=== PATIENT | female | born 1950 | race Caucasian/White ===

== ENCOUNTER 2018-03-19 03:36 | Observation (INO) | payer OTHER, MEDICARE ==
[~2018-03-19] VITALS: Ht 152.4 cm; Wt 95.8 kg
[2018-03-19] VITALS (8 sets, daily range): BP systolic 103–152; BP diastolic 55–79; PULSE 82–106; TEMP 36.8–37.4; O2SAT 92–94; Ht 152.4 cm; Wt 95.8 kg
[2018-03-19] MEDS ORDERED: SODIUM CHLORIDE 0.9% 500ML 500 ML IV STA (03:49)
[2018-03-19 03:59] LABS: BASO % 0.3 %; BASO ABS # 0.04 K/uL (0-0.2); EOS % 1.9 %; EOS ABS # 0.24 K/uL (0-0.5); HEMATOCRIT 43.2 % (37-47); HEMOGLOBIN 14.8 g/dL (12.0-16.0); IG# 0.03 K/uL (0.00-0.02); LYMPH % 15.5 %; LYMPH ABS # 1.96 K/uL (1.2-3.4); MEAN CORPUSCULAR HEMOGLOBIN 30.1 pg (25-34); MEAN CORPUSCULAR HGB CONC 34.3 g/dl (32-36); MEAN PLATELET VOLUME 9.8 fL (7.4-10.4); MONO % 5.5 %; NEUT % 76.6 %; NEUT ABS # 9.69 K/uL (1.4-6.5); PLATELET COUNT 286 K/uL (130-400); RED CELL DISTRIBUTION WIDTH SD 45.1 fL (36.4-46.3); WHITE BLOOD COUNT 12.66 K/uL (4.8-10.8)
[2018-03-19] MEDS ORDERED: MoRPHine SULFATE 4 MG/ML 1 ML CARP\\VIAL IV ONE (04:00)
[2018-03-19] MEDS ORDERED: NITROGLYCERIN 2% OINTMENT 30GM TUBE EXT ONE (04:00)
[2018-03-19 04:16] LABS: ALBUMIN 3.2 gm/dl (3.4-5.0); CALCIUM 8.9 mg/dl (8.5-10.1); CREATININE 1.13 mg/dl (0.60-1.20); POTASSIUM 3.8 mmol/L (3.5-5.1)
[2018-03-19 04:22] LABS: CKMB 1.3 ng/ml (0.5-3.6); TOTAL PROTEIN 7.4 gm/dl (6.4-8.2)
[2018-03-19] MEDS ORDERED: CHOL2000 PO (04:37)
[2018-03-19] MEDS ORDERED: LVMIPEN SQ (04:38)
[2018-03-19] MEDS ORDERED: CYM/30 PO (04:39)
[2018-03-19] MEDS ORDERED: LEVO125T5 PO (04:39)
[2018-03-19] MEDS ORDERED: ATOR-22 PO (04:40)
[2018-03-19 04:53] LABS: INR 1.1 (0.9-1.1); PTT PATIENT 24.3 SECONDS (21.0-31.0)
[2018-03-19] MEDS ORDERED: OPTIRAY 320 IV PRN (05:00)
[2018-03-19] MEDS ORDERED: EXEN1INJ3 SC (05:01)
[2018-03-19 06:55] LABS: HEMOGLOBIN A1C 9.3 % (4.5-5.6)
--- NOTE | 2018-03-19 06:58 | DIAGNOSTIC IMAGING REPORT ---
CHEST ONE VIEW PORTABLE CLINICAL HISTORY: Chest pain dyspnea COMPARISON STUDY: No previous studies for comparison. FINDINGS: The bones soft tissues and hemidiaphragms are normal. The cardiomediastinal silhouette is normal. The lungs are clear. The pulmonary vasculature is normal. Postoperative changes low cervical neck region IMPRESSION: No acute process. The above report was generated using voice recognition software. It may contain grammatical, syntax or spelling errors. Electronically signed by: Waldo Draper M.D. 03/19/2018 6:57 AM Dictated Date/Time: 03/19/2018 6:56 AM
[2018-03-19] MEDS ORDERED: MAGNESIUM SULFATE 1GM / D5W 100 ML IV STA (07:01)
[2018-03-19] MEDS ORDERED: TRAMADOL HCL 50 MG TAB PO PRN (07:15)
[2018-03-19] MEDS ORDERED: ACETAMINOPHEN 325 MG TAB PO PRN (07:15)
[2018-03-19] MEDS ORDERED: DEXTROSE 50% 50 ML SYR IV PRN (07:15)
[2018-03-19] MEDS ORDERED: GLUCAGON FOR INJ 1 MG VIAL SQ PRN (07:15)
[2018-03-19] MEDS ORDERED: LORAZEPAM 2 MG/ML 1 ML VIAL IV PRN (07:15)
[2018-03-19] MEDS ORDERED: CARBOHYDRATES FOR HYPOGLYCEMIA PO PRN (07:15)
[2018-03-19] MEDS ORDERED: GLUCOSE 40% GEL 15 GM TUBE PO PRN (07:15)
[2018-03-19] MEDS ORDERED: MoRPHine SULFATE 2 MG/ML CARP IV PRN (07:15)
[2018-03-19] MEDS ORDERED: PROCHLORPERAZINE INJ 5 MG in SYRINGE 4 ML IV PRN (07:15)
[2018-03-19] MEDS ORDERED: NITROGLYCERIN 0.4 MG SL PER TAB CHARGE SL PRN (07:15)
[2018-03-19] MEDS ORDERED: GLUCOSE 10 TABS/TUBE PO PRN (07:15)
--- NOTE | 2018-03-19 07:31 | DIAGNOSTIC IMAGING REPORT ---
(CHEST FOR PE) ANGIO WITH CLINICAL HISTORY: 67 years-old Female presenting with ^chest pain. TECHNIQUE: Multidetector CT angiography of the chest was performed after administration of intravenous contrast. 3-D volumetric and/or maximum intensity projection (MIP) images were subsequently reconstructed for review. IV contrast: 94 mL of Optiray 320. A dose lowering technique was used consistent with the principles of ALARA (as low as reasonably achievable). COMPARISON: Chest x-ray performed earlier the same day. CT DOSE (mGy.cm): The estimated cumulative dose is 499.22 mGy.cm. FINDINGS: Business Investor topogram: Unremarkable. Pulmonary vasculature: The study is adequate for assessment of the pulmonary vascular tree. No filling defect within the pulmonary arteries to suggest embolus. Main pulmonary artery is top normal in size. No flattening of the interventricular septum. No intracardiac filling defect. No reflux of contrast into the hepatic veins. Remaining chest: On soft tissue windows, post surgical changes of thyroidectomy. No axillary, supraclavicular, hilar, or mediastinal lymphadenopathy. Normal aorta. Normal heart size. No pericardial or pleural effusion. Postsurgical changes of gastric banding. Small hiatal hernia may be present. Borderline hepatic steatosis. On lung windows, minimal dependent groundglass opacities in the right lower lobe likely atelectasis. Solid peripheral 4 mm nodule in the posterior basal right lower lobe (series 4 image 72). The most inferior portion of the lung bases is excluded from the [id number] limiting evaluation in this region. Central airways patent. On bone windows, degenerative changes of the spine. IMPRESSION: 1. No evidence of pulmonary embolus. 2. No acute intrathoracic pathology. 3. Solid 4 mm right lower lobe pulmonary nodule. Follow-up per Jesus Society 2017 recommendations below. The report will be called/faxed according to standard departmental protocol. Please refer to below summary of Fleischner Society 2017 recommendations for follow-up of incidental CT nodules (H Alley et al. Guidelines for management of incidental pulmonary nodules detected on CT images: From the Fleischner Society 2017. Radiology 2017; 284: 228-243.) SOLID NODULES Single nodule; size < 6 mm * Low risk patients: No routine follow-up * High risk patients: Optional CT at 12 months Single nodule; size 6-8 mm * Low risk patients: CT at 6-12 months, then consider CT at 18-24 months * High risk patients: CT at 6-12 months, then at 18-24 months Single nodule; size > 8 mm * Either low or high risk patients: Considered CT at 3 months, PET/CT, or tissue sampling Multiple nodules; size < 6 mm * Low risk patients: No routine follow up * High risk patients: Optional CT at 12 months Multiple nodules; size 6-8 mm * Low risk patients: CT at 3-6 months, then consider CT at 18-24 months * High risk patients: CT at 3-6 months, then at 18-24 months Multiple nodules; size > 8 mm * Low risk patients: CT at 3-6 months, then consider at 18-24 months * High risk patients: CT at 3-6 months, then at 18-24 months SUBSOLID NODULES Single ground-glass nodule * Nodule size < 6 mm: No routine follow-up * Nodule size > or = 6 mm: CT at 6-12 months to confirm persistence, then CT every 2 years until 5 years Single part-solid nodule * Nodule size < 6 mm: No routine follow-up * Nodules size > or = 6 mm: CT at 3-6 months to confirm persistence. If unchanged and solid component remains < 6 mm, annual CT should be performed for 5 years Multiple nodules * Nodule size < 6 mm: CT at 3-6 months. If stable, consider CT at 2 and 4 years. * Nodules size > or = 6 mm: CT at 3-6 months. Subsequent management based on the most suspicious nodule(s) NOTE: 1) These guidelines apply to incidental nodules. These guidelines do NOT apply to patients younger than 35 years, immunocompromised patients, or patients with cancer. 2) Risk categories: * Low risk patients: Minimal or absent history of smoking and/or other known risk factors * High risk patients: History of smoking, exposure to other carcinogens, emphysema, fibrosis, upper lobe location, family history of lung cancer, etc. 3) If a nodule up to 8 mm is partly solid or is ground glass, further follow-up is required after 24 months to exclude possible slow growing adenocarcinoma. Electronically signed by: Josue Solano M.D. 03/19/2018 7:29 AM Dictated Date/Time: 03/19/2018 6:52 AM
[2018-03-19] MEDS ORDERED: INSULIN ASPART 100 UNITS/ML 3 ML PEN SC STA (07:39)
[2018-03-19 07:42] LABS: CHOLESTEROL 137 mg/dl (0-200); LDL CHOLESTEROL CALCULATED 79 mg/dl
[2018-03-19] MEDS ORDERED: INSULIN DETEMIR FLEXPEN/FLEX TOUCH 100 UNITS/ML 3ML SQ STA (07:42)
[2018-03-19] MEDS: LEVOTHYROXINE 125 MCG TAB PO SCH (08:00)
[2018-03-19] MEDS: ENOXAPARIN 40 MG/0.4 ML SYR SC SCH (08:00)
[2018-03-19] MEDS ORDERED: NSS + 20MEQ KCL 1000ML 1,000 ML IV SCH (08:00)
[2018-03-19] MEDS: DULOXETINE (CYMBALTA) 30 MG CAP PO SCH (09:00)
[2018-03-19] MEDS: ATORVASTATIN 20 MG TAB PO SCH (09:00)
[2018-03-19] MEDS: INSULIN ASPART 100 UNITS/ML 3 ML PEN SC SCH ×3 (11:00→21:59)
--- NOTE | 2018-03-19 11:08 | HISTORY & PHYSICAL EXAMINATION ---
DATE OF ADMISSION: 03/19/2018 PRIMARY CARE DOCTOR: [facility] in [place], [place]. CHIEF COMPLAINT: Chest pain. HISTORY OF PRESENT ILLNESS: History obtained from patient and records. Medical history is significant for hyperlipidemia, mood disorder, DM2, insulin requiring Patient currently on a camping trip in [place], [place]. She was watching television hours ago when she had substernal pain going to her right neck as if an elephant sitting on her chest with some nausea. She felt sweat, shortness of breath, dry cough symptom. Chest discomfort relieved with nitroglycerin and aspirin given by EMS, MEDICAL HISTORY: As above. She had a stress test a few years ago for unrecalled reasons. SURGICAL HISTORY: She has had hysterectomy, carpal tunnel surgery, thyroidectomy, gastric bypass. MEDICATIONS: Home medications include aspirin, Lipitor, Cymbalta, exenatide, Levemir, levothyroxine. ALLERGIES: MEPERIDINE, METFORMIN. FAMILY HISTORY: Heart disease. PERSONAL AND SOCIAL HISTORY: Nonsmoker, no chronic ETOH intake. Retired museum employee. REVIEW OF SYSTEMS: As per HPI. All 10 systems reviewed, all other ROS negative. PHYSICAL EXAMINATION: VITAL SIGNS: Blood pressure was noted to be 126/70, pulse rate 100, RR 19, temperature 36.7, saturations 95% on room air. GENERAL: Slightly anxious, obese, pleasant. SKIN: Normal color, warm. HEENT: Marvell palpebral conjunctivae. No ptosis . Dry oral mucosa. NECK: Short, supple. CHEST: Clear to auscultation. No tenderness. HEART: Regular rate and rhythm. No murmur. ABDOMEN: Some distention, nontender. EXTREMITIES: No edema. No gross deformities. No tenderness. NEUROLOGIC: Coherent, no gross focality. LABORATORY DATA: Hemoglobin was noted to be 14.8, hematocrit 42.2, white cells 12.66, platelets 286. Sodium noted to be 136, potassium 3.8, chloride 104, CO2 of 20, BUN 80, creatinine 1.2, glucose 335. Point of care troponin noted to be 0.03. Hemoglobin A1C 9.3. CT of chest initial read showed atelectasis, small hiatal hernia, calcified nodules. EKG as per my interpretation, rate 105, sinus tachycardia, low voltage, PRWP. ASSESSMENT: 1. Chest pain possible unstable angina 2. hyperlipidemia on statin tx 3. history of gastric bypass 4. DM2, on insulin suboptimal control. PLAN: Observation PCU Follow troponin. Cardiology consult RE chest pain Continue home ASA for CAD prevention until ACS ruled out. Basal insulin, ISS BG goal 140 to 180. Diabetic education. DVT Prophylaxis : Lovenox subQ Full code. MTDD
--- NOTE | 2018-03-19 11:22 | Cardiology Consultation ---
Cardiology Consultation Date of Consultation: March 19, 2018 Requesting Physician: Alia Attending Welder Setter Resistance Machine: Raji Medina (Waldo French PA-C) History of Present Illness Mrs. Puente is a 67-year-old female who is being seen at request of Dr. Rojo. Reason for consultation is chest pain. Mrs. Puente is visiting from [place], [place] - [facility]. Patient notes being in her normal state of health until last night around 1 AM at which time she awoke from sleep with substernal chest discomfort which she describes as initially an elephant on her chest bouncing around and now just sitting there. She describes feeling as through she was freezing and sweating. She notes calling her neighbor who immediately called 911. She descrbies being transferred to the [facility] ER where she was seen and evaluated. Note: Documentation from the ER as well as an admission history and physical examination are not currently available for review. Information obtained solely from the patient. Patient notes receiving both nitroglycerin and morphine in the ER, symptoms transiently abated with the use of morphine. EKG in the emergency room, timed 03:41:02, revealed sinus tachycardia at 107 bpm with low voltage QRS, possible old inferior infarct; cannot rule out an old anteroseptal infarct. No prior EKGs available for review. Initial cardiac enzymes were negative. Chest x-ray showed no acute processes. An elevated d-dimer led to a CT scan of the chest which showed no evidence of PE and no evidence of intrathoracic pathology. CBC revealed mild leukocytosis, white blood cell count of 12.66. H&H were 14.8 and 43.2. Platelet count was normal at 286K. The patient was admitted to telemetry. She was seen and evaluated by the undersigned at approximately 9:40 AM this morning. She continues to have chest discomfort that is worse with deep inspiration, worse with movement of the chest , and reproduced with palpation of the chest. She has never had this before. She denies recent illness, injury, trauma, history of radiation, or history of autoimmune disease. She denies prior cardiac history and specifically denies history of pericarditis, CAD, MN, CHF, arrhythmias, rheumatic fever, scarlet fever, or heart murmur. The patient denies exertional chest pain. She notes no palpitations. She has stable exertional dyspnea. She denies cough, orthopnea, PND, or lower extremity peripheral edema. She denies rash. She denies tick bites. She denies any recent changes to her medications. She denies any recent illnesses. No lightheadedness, dizziness, near syncope or true syncope. No overt fevers. No night sweats. (Waldo French PA-C) Past Medical/Surgical History Problem List: Fibromyalgia Hypertension Dyslipidemia Type 2 diabetes mellitus Obesity, status post lap band surgery ~15 years ago Cervical fusion Goiter, status post thyroidectomy Hiatal hernia Hysterectomy (Waldo French PA-C) Family History Mother had premature coronary artery disease and congestive heart failure, passing with sepsis at the age of 68. She notes that her father had Dontrell, passing with emphysema. One brother with lung cancer. One brother with sarcoid. (Waldo French PA-C) Social History Non-smoker. She imbibes one alcoholic drink per year. She denies illegal drug use. 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 . Two children. was CAD. No cardiac issues in her two children. (Waldo French PA-C) Review Of Systems General: See above. No abrupt weight change. HEENT: Glasses. Developing cataracts. Migraine headaches. No head trauma. Cardiovascular: See above. Pulmonary: See above. Asthma. Gastrointestinal: IBS. No melena or hematochezia. : Chronic hematuria "since I was a kid " Skin: No rash. Musculoskeletal: Fibromyalgia. Neurological: Denies history of TIA, CVA, or seizures. Complete review of system is otherwise as stated above, negative, noncontributory. (Waldo French PA-C) Allergies Coded Allergies: Meperidine (Verified Allergy, Unknown, HIVES, 03/19/18) Metformin (Verified Allergy, Unknown, GI UPSET, 03/19/18) Medications Reported Home Medications Medications Dose Route/Sig Max Daily Dose Days Date Category Bydureon (Exenatide) Unknown Strength Inj Unknown Dose SC WK 03/19/18 Reported Lipitor (Atorvastatin Calcium) 20 Mg Tab 20 Mg PO DAILY 03/19/18 Reported Levothyroxine Sodium 125 Mcg Tab 125 Mcg PO DAILY 90 03/19/18 Reported Cymbalta (Duloxetine HCl) 30 Mg Cap 30 Mg PO DAILY 30 03/19/18 Reported Levemir Flextouch (Insulin Detemir) 100 Unit/Ml Inj 60 SQ DAILY 03/19/18 Reported Vitamin D3 (Cholecalciferol) 2,000 Unit Cap 2,000 Units PO DAILY 90 03/19/18 Reported (Waldo French PA-C) Physical Exam Vital Signs (Last 8hrs): Last 8 Hrs Date Time Temp Pulse Resp B/P (MAP) Pulse Ox O2 Delivery O2 Flow Rate FiO2 03/19/18 06:48 98 16 145/74 93 Room Air 03/19/18 06:45 92 03/19/18 06:30 104 20 133/81 93 Room Air 03/19/18 06:00 100 25 126/76 93 03/19/18 05:30 100 15 124/75 92 03/19/18 05:00 100 19 126/73 94 03/19/18 04:54 95 18 136/76 96 Room Air 03/19/18 04:32 108 16 132/77 95 Room Air 03/19/18 03:45 108 03/19/18 03:44 95 Room Air 03/19/18 03:39 95 Room Air 03/19/18 03:39 37.0 103 20 138/66 95 Room Air General: Alert and Oriented x3. Mild distress HEENT: Normocephalic Atraumatic. PER, EOMI, conjunctiva and sclera clear Neck: Supple. No carotid bruits. No JVD. No HJD. Respiratory: Decreased. Diminished. Faint expiratory wheezing. No rales. No rhonchi. Chest: There is clear, reproducible chest wall discomfort with palpation of the sternum as well as left lateral to the sternum. Cardiovascular: Distant heart sounds. Regular, tachycardic at 100 bpm. I could not appreciate any murmurs, rubs, or gallops. Abdomen: Obese. +BS. No bruits. Soft. Nontender. No organomegaly. Extremities: No edema. No clubbing. No cyanosis. Distal pulses 2/4 bilaterally. Neuro: No focal deficits. Psychiatric: Normal affect. (Waldo French PA-C) Data Last 24 Hours Test 03/19/18 03:03 03/19/18 04:01 5/2/18 04:20 03/19/18 04:26 White Blood Count 12.66 K/uL Red Blood Count 4.91 M/uL Hemoglobin 14.8 g/dL Hematocrit 43.2 % Mean Corpuscular Volume 88.0 fL Mean Corpuscular Hemoglobin 30.1 pg Mean Corpuscular Hemoglobin Concent 34.3 g/dl Platelet Count 286 K/uL Mean Platelet Volume 9.8 fL Neutrophils (%) (Auto) 76.6 % Lymphocytes (%) (Auto) 15.5 % Monocytes (%) (Auto) 5.5 % Eosinophils (%) (Auto) 1.9 % Basophils (%) (Auto) 0.3 % Neutrophils # (Auto) 9.69 K/uL Lymphocytes # (Auto) 1.96 K/uL Monocytes # (Auto) 0.70 K/uL Eosinophils # (Auto) 0.24 K/uL Basophils # (Auto) 0.04 K/uL RDW Standard Deviation 45.1 fL RDW Coefficient of Variation 14.0 % Immature Granulocyte % (Auto) 0.2 % Immature Granulocyte # (Auto) 0.03 K/uL Sodium Level 136 mmol/L Potassium Level 3.8 mmol/L Chloride Level 104 mmol/L Carbon Dioxide Level 23 mmol/L Anion Gap 9.0 mmol/L Blood Urea Nitrogen 18 mg/dl Creatinine 1.13 mg/dl Est Creatinine Clear Calc Drug Dose 50.4 ml/min Estimated GFR () 58.2 Estimated GFR (Non- 50.3 BUN/Creatinine Ratio 16.1 Random Glucose 335 mg/dl Estimated Average Glucose 220 mg/dl Hemoglobin A1c 9.3 % Calcium Level 8.9 mg/dl Magnesium Level 1.6 mg/dl Total Bilirubin 0.6 mg/dl Aspartate Amino Transf (AST/SGOT) 20 U/L Alanine Aminotransferase (ALT/SGPT) 22 U/L Alkaline Phosphatase 65 U/L Total Creatine Kinase 163 U/L Creatine Kinase MB 1.3 ng/ml Creatine Kinase MB Ratio 0.8 Total Protein 7.4 gm/dl Albumin 3.2 gm/dl Globulin 4.2 gm/dl Albumin/Globulin Ratio 0.8 Lipase 191 U/L Beta-Hydroxybutyric Acid mg/dL Thyroid Stimulating Hormone (TSH) 2.720 uIu/ml Bedside D-Dimer > 450 ng/mlFEU Bedside Troponin I < 0.030 ng/ml Urine Color YELLOW Urine Appearance CLOUDY Urine pH 5.0 Urine Specific Eunice 1.021 Urine Protein TRACE Urine Glucose (UA) 3+ Urine Ketones NEG Urine Occult Blood 2+ Urine Nitrite NEG Urine Bilirubin NEG Urine Urobilinogen NEG Urine Leukocyte Esterase TRACE Urine WBC (Auto) 5-10 /hpf Urine RBC (Auto) 10-30 /hpf Urine Hyaline Casts (Auto) 0 /lpf Urine Epithelial Cells (Auto) 20-30 /lpf Urine Bacteria (Auto) NEG Prothrombin Time 12.0 SECONDS Prothromb Time International Ratio 1.1 Activated Partial Thromboplast Time 24.3 SECONDS Partial Thromboplastin Ratio 0.9 Test 03/19/18 07:14 03/19/18 09:37 Troponin I < 0.015 ng/ml Triglycerides Level 86 mg/dl Cholesterol Level 137 mg/dl HDL Cholesterol 41 mg/dl LDL Cholesterol, Calculated 79 mg/dl VLDL Cholesterol, Calculated 17 mg/dl Cholesterol/HDL Ratio 3.3 Bedside Glucose 215 mg/dl CXR and CT: See above. EKG: See above. Telemetry: Sinus/sinus tachycardia. Occasional PAC's. (Waldo French PA-C) Assessment & Plan 67 year old female admitted with musculoskeletal/pleuritic chest pain. EKG on presentation reveals sinus tachycardia with low voltage QRS. Initial cardiac enzymes negative. Resting echocardiography requested along with repeat EKG, sedimentation rate, and lyme screening. Treatment with nonsteroidal anti- inflammatory medication as well as colchicine to be considered after review of the follow-up EKG and echocardiogram. Further recommendations pending the above , evaluation by Dr. Medina, and her ongoing hospitalization. (Waldo French PA-C) Patient seen and personally examined. History is suggestive of pleuropericarditis though no acute changes of pericarditis on EKG. Echocardiogram demonstrates hyperdynamic LV function without wall motion abnormality and EKGs and laboratory tests did not suggest acute ischemia. Plan add ibuprofen to medical regimen. Given very hyperdynamic LV function on echocardiogram low-dose beta david will be added to regimen as well. If any changes on EKG develop consider use of colchicine for long-term management Raji Medina MD (Raji Medina M.D.)
--- NOTE | 2018-03-19 14:46 | ECHOCARDIOGRAM REPORT ---
*NOTICE TO RECEIVING [employer] AGENCY This information is strictly Confidential and protected under [place] law. [place] law prohibits you from making any further disclosure of this information unless further disclosure is expressly permitted by the written consent of the person to whom it pertains or is authorized by law. A general authorization for the release of medical or other information is not sufficient for this purpose. Hospital accepts no responsibility if the information is made available to any other person, INCLUDING THE PATIENT. Interpretation Summary * Name: IVAN EASTMAN Study Date: 03/19/2018 12:24 PM BP: 123/79 mmHg * Patient Location: [facility]\S\N286\S\1 HR: 93 * : 1950 (M/d/yyyy) Gender: Female Height: 60 in * Age: 67 yrs Ethnicity: CA Weight: 213 lb * Ordering Physician: Waldo French * Referring Physician: Self, Referred * Performed By: Ashley Dotson RDCS * * Reason For Study: CHEST PAIN * BSA: 1.9 m2 * -- Conclusions -- * The left ventricle is normal in size. * There is moderate concentric left ventricular hypertrophy. * Left ventricular systolic function is normal. * Ejection Fraction = 65-70%. * The left ventricular wall motion is normal. * There is no significant valvular disease * There is no pericardial effusion Procedure Details * A contrast injection of Definity was performed to improve assessment of LV function. * Contrast was injected into an intravenous site in the right arm. * One vial of Definity ultrasound contrast was diluted in normal saline to a total volume of 10 ml. A total of '2' ml of solution was administered during imaging. * Lot # [id number] of Definity utilized for procedure. * Expiration date 1 JAN 06. * The attending nurse who injected the contrast agent was FORREST CARMICHAEL. * A complete two-dimensional transthoracic echocardiogram was performed (2D, M-mode, Doppler and color flow Doppler). Left Ventricle * The left ventricle is normal in size. * There is moderate concentric left ventricular hypertrophy. * Left ventricular systolic function is normal. * Ejection Fraction = 65-70%. * The left ventricular wall motion is normal. Right Ventricle * The right ventricle is normal in size and function. Atria * The left atrial size is normal. * Right atrial size is normal. * No ASD detected; PFO is not assessed. Mitral Valve * The mitral valve anatomy is normal. * There is no mitral valve stenosis. * There is trace mitral regurgitation. Tricuspid Valve * The tricuspid valve anatomy is normal. * There is no tricuspid stenosis. * There is trace tricuspid regurgitation. Aortic Valve * The aortic valve is trileaflet. * No hemodynamically significant valvular aortic stenosis. * No aortic regurgitation is present. Pulmonic Valve * The pulmonic valve is not well visualized. Great Vessels * The aortic root is normal size. Pericardium/Pleural * There is no pericardial effusion. Great Vessels * Normal inferior vena cava diameter and respiratory variation suggests normal central venous pressure. Left Ventricular Diastolic Function * Grade I diastolic dysfunction, (abnormal relaxation pattern). MMode 2D Measurements and Calculations IVSd 1.4 cm IVSs 2.0 cm LVIDd 3.3 cm LVIDs 2.1 cm LVPWd 1.4 cm LVPWs 1.7 cm IVS/LVPW 1.0 FS 36.3 % EDV(Teich) 43.2 ml ESV(Teich) 14.1 ml EF(Teich) 67.3 % EDV(cubed) 35.0 ml ESV(cubed) 9.0 ml EF(cubed) 74.2 % % IVS thick 38.4 % % LVPW thick 26.3 % LV mass(C)d 157.0 grams LV mass(C)dI 81.9 grams/m\S\2 LV mass(C)s 154.0 grams LV mass(C)sI 80.3 grams/m\S\2 SV(Teich) 29.1 ml SI(Teich) 15.2 ml/m\S\2 SV(cubed) 26.0 ml SI(cubed) 13.5 ml/m\S\2 Ao root diam 2.7 cm Ao root area 5.8 cm\S\2 LA dimension 3.6 cm LA/Ao 1.3 LVAd ap4 18.9 cm\S\2 LVLd ap4 6.8 cm EDV(MOD-sp4) 41.7 ml EDV(sp4-el) 44.2 ml LVAs ap4 9.8 cm\S\2 LVLs ap4 5.5 cm ESV(MOD-sp4) 14.6 ml ESV(sp4-el) 14.7 ml EF(MOD-sp4) 64.9 % EF(sp4-el) 66.6 % LVAd ap2 18.5 cm\S\2 LVLd ap2 6.9 cm EDV(MOD-sp2) 39.7 ml EDV(sp2-el) 41.9 ml LVAs ap2 10.3 cm\S\2 LVLs ap2 6.6 cm ESV(MOD-sp2) 12.9 ml ESV(sp2-el) 13.8 ml EF(MOD-sp2) 67.5 % EF(sp2-el) 67.0 % LVLd %diff 1.1 % EDV(MOD-bp) 41.0 ml LVLs %diff 16.0 % ESV(MOD-bp) 14.8 ml EF(MOD-bp) 64.0 % SV(MOD-sp4) 27.0 ml SI(MOD-sp4) 14.1 ml/m\S\2 SV(MOD-sp2) 26.8 ml SI(MOD-sp2) 14.0 ml/m\S\2 SV(MOD-bp) 26.2 ml SI(MOD-bp) 13.7 ml/m\S\2 SV(sp4-el) 29.4 ml SI(sp4-el) 15.4 ml/m\S\2 SV(sp2-el) 28.1 ml SI(sp2-el) 14.6 ml/m\S\2 Doppler Measurements and Calculations MV E max paul 53.4 cm/sec MV A max paul 81.2 cm/sec MV E/A 0.66 MV dec time 0.28 sec Ao V2 max 135.6 cm/sec Ao max PG 7.4 mmHg Ao max PG (full) 2.4 mmHg LV V1 max PG 5.0 mmHg LV V1 max 111.3 cm/sec
[2018-03-19] MEDS ORDERED: NURSING VERBAL MED ORDER ONE ×2 (15:00→19:45)
[2018-03-19] MEDS ORDERED: PANTOprazole SOD 40 MG TAB PO STA (17:22)
[2018-03-19] MEDS ORDERED: IBUPROFEN 600 MG TAB PO STA (18:28)
[2018-03-19] MEDS ORDERED: METOPROLOL TARTRATE 25 MG TAB PO ONE (18:30)
[2018-03-19] MEDS ORDERED: IV FLUIDS COMPLETED PRN (19:15)
[2018-03-19] MEDS ORDERED: INSULIN DETEMIR FLEXPEN/FLEX TOUCH 100 UNITS/ML 3ML SQ SCH ×2 (21:00)
[2018-03-19] MEDS: IBUPROFEN 200 MG TAB PO SCH (22:00)
--- NOTE | 2018-03-19 23:48 | EMERGENCY ROOM VISIT NOTE ---
History First contact with patient: 03:41 Chief Complaint: CHEST PAIN Stated Complaint: OTHER CHEST PAIN Nursing Triage Summary: pt sharp chest pain that radiates into her right jaw and yarsani with SOB, diaphoresis and nausea that started at while sitting watching tv. pt denies cardiac history. pt was given 4 nitro and 324mg asa en route with pain decreasing from 9-6. History of Present Illness The patient is a 67 year old female who presents to the Emergency Room with complaints of central chest pain that radiates into her right side jaw and face that began about 2 hours ago. The patient states that she lives outside of [place] but is currently camping in the [facility]. The patient was watching television at the onset of symptoms. She contacted EMS who provided her 324 mg aspirin and 4 doses of nitro. The EMS treatment did help her pain, which was initially a 9, and is now a 5. The patient still has some dull discomfort in the chest but no worsening of her symptoms. She does not report fevers, chills, abdominal pain, nausea, or vomiting. She has a history of diabetes, and does not regularly check her sugar. The patient has not had history of cardiac event in the past, but is concerned because this was similar to when her had his heart attack. Review of Systems More than 10 systems were reviewed and otherwise negative with the exception of history of present illness. Past Medical/Surgical History Medical Problems: (1) Other chest pain Family History No pertinent family history Social History Smoking Status: Never Smoker Housing Status: lives with family Current/Historical Medications Scheduled Atorvastatin (Lipitor), 20 MG PO DAILY Cholecalciferol (Vitamin D3), 2,000 UNITS PO DAILY Duloxetine HCl (Cymbalta), 30 MG PO DAILY Exenatide (Bydureon), Unknown Dose SC WK Insulin Detemir (Levemir Flextouch), 60 SQ DAILY Levothyroxine Sodium (Levothyroxine Sodium), 125 MCG PO DAILY Physical Exam Vital Signs Date Time Temp Pulse Resp B/P (MAP) Pulse Ox O2 Delivery O2 Flow Rate FiO2 03/19/18 06:45 92 03/19/18 06:30 104 20 133/81 93 Room Air 03/19/18 06:00 100 25 126/76 93 03/19/18 05:30 100 15 124/75 92 03/19/18 05:00 100 19 126/73 94 03/19/18 04:54 95 18 136/76 96 Room Air 03/19/18 04:32 108 16 132/77 95 Room Air 03/19/18 03:45 108 03/19/18 03:44 95 Room Air 03/19/18 03:39 95 Room Air 03/19/18 03:39 37.0 103 20 138/66 95 Room Air Physical Exam VITALS: Vitals are noted on the nurse's note and reviewed by myself. Vital signs with persistent tachycardia GENERAL: Well-developed, well-nourished, white female, who is in no acute distress and resting comfortably. Patient is cooperative with the examination. HEAD: Normocephalic atraumatic. NECK: Supple without nuchal rigidity. No lymphadenopathy. No thyromegaly. Cervical spine is nontender. HEART: Mildly tachycardic rate with regular rhythm LUNGS: Clear to auscultation bilaterally without wheezes, rales or rhonchi. No retractions or accessory muscle use. ABDOMEN: Positive normal bowel sounds x 4. Soft, nontender, without masses or organomegaly. MUSCULOSKELETAL: No muscle atrophy, erythema, or edema noted. Full range of motion in all extremities. No NEURO: Patient was alert and oriented to person place and time. CN II through XII grossly intact. Medical Decision & Procedures ER Provider Diagnostic Interpretation: CHEST ONE VIEW PORTABLE CLINICAL HISTORY: Chest pain dyspnea COMPARISON STUDY: No previous studies for comparison. FINDINGS: The bones soft tissues and hemidiaphragms are normal. The cardiomediastinal silhouette is normal. The lungs are clear. The pulmonary vasculature is normal. Postoperative changes low cervical neck region IMPRESSION: No acute process. (CHEST FOR PE) ANGIO WITH CLINICAL HISTORY: 67 years-old Female presenting with ^chest pain. TECHNIQUE: Multidetector CT angiography of the chest was performed after administration of intravenous contrast. 3-D volumetric and/or maximum intensity projection (MIP) images were subsequently reconstructed for review. IV contrast: 94 mL of Optiray 320. A dose lowering technique was used consistent with the principles of ALARA (as low as reasonably achievable). COMPARISON: Chest x-ray performed earlier the same day. CT DOSE (mGy.cm): The estimated cumulative dose is 499.22 mGy.cm. FINDINGS: Plumbing Assembler topogram: Unremarkable. Pulmonary vasculature: The study is adequate for assessment of the pulmonary vascular tree. No filling defect within the pulmonary arteries to suggest embolus. Main pulmonary artery is top normal in size. No flattening of the interventricular septum. No intracardiac filling defect. No reflux of contrast into the hepatic veins. Remaining chest: On soft tissue windows, post surgical changes of thyroidectomy. No axillary, supraclavicular, hilar, or mediastinal lymphadenopathy. Normal aorta. Normal heart size. No pericardial or pleural effusion. Postsurgical changes of gastric banding. Small hiatal hernia may be present. Borderline hepatic steatosis. On lung windows, minimal dependent groundglass opacities in the right lower lobe likely atelectasis. Solid peripheral 4 mm nodule in the posterior basal right lower lobe (series 4 image 72). The most inferior portion of the lung bases is excluded from the [id number] limiting evaluation in this region. Central airways patent. On bone windows, degenerative changes of the spine. IMPRESSION: 1. No evidence of pulmonary embolus. 2. No acute intrathoracic pathology. 3. Solid 4 mm right lower lobe pulmonary nodule. Follow-up per Jesus Society 2017 recommendations below. The report will be called/faxed according to standard departmental protocol. Please refer to below summary of Fleischner Society 2017 recommendations for follow-up of incidental CT nodules (H Alley, et al. Guidelines for management of incidental pulmonary nodules detected on CT images: From the Fleischner Society 2017. Radiology 2017; 284: 228-243.) SOLID NODULES Single nodule; size < 6 mm * Low risk patients: No routine follow-up * High risk patients: Optional CT at 12 months Single nodule; size 6-8 mm * Low risk patients: CT at 6-12 months, then consider CT at 18-24 months * High risk patients: CT at 6-12 months, then at 18-24 months Single nodule; size > 8 mm * Either low or high risk patients: Considered CT at 3 months, PET/CT, or tissue sampling Multiple nodules; size < 6 mm * Low risk patients: No routine follow up * High risk patients: Optional CT at 12 months Multiple nodules; size 6-8 mm * Low risk patients: CT at 3-6 months, then consider CT at 18-24 months * High risk patients: CT at 3-6 months, then at 18-24 months Multiple nodules; size > 8 mm * Low risk patients: CT at 3-6 months, then consider at 18-24 months * High risk patients: CT at 3-6 months, then at 18-24 months SUBSOLID NODULES Single ground-glass nodule * Nodule size < 6 mm: No routine follow-up * Nodule size > or = 6 mm: CT at 6-12 months to confirm persistence, then CT every 2 years until 5 years Single part-solid nodule * Nodule size < 6 mm: No routine follow-up * Nodules size > or = 6 mm: CT at 3-6 months to confirm persistence. If unchanged and solid component remains < 6 mm, annual CT should be performed for 5 years Multiple nodules * Nodule size < 6 mm: CT at 3-6 months. If stable, consider CT at 2 and 4 years. * Nodules size > or = 6 mm: CT at 3-6 months. Subsequent management based on the most suspicious nodule(s) NOTE: 1) These guidelines apply to incidental nodules. These guidelines do NOT apply to patients younger than 35 years, immunocompromised patients, or patients with cancer. 2) Risk categories: * Low risk patients: Minimal or absent history of smoking and/or other known risk factors * High risk patients: History of smoking, exposure to other carcinogens, emphysema, fibrosis, upper lobe location, family history of lung cancer, etc. 3) If a nodule up to 8 mm is partly solid or is ground glass, further follow-up is required after 24 months to exclude possible slow growing adenocarcinoma. Laboratory Results 03/19/18 03:03 Red Blood Count 4.91, Mean Corpuscular Volume 88.0, Mean Corpuscular Hemoglobin 30.1, Mean Corpuscular Hemoglobin Concent 34.3, Mean Platelet Volume 9.8, Neutrophils (%) (Auto) 76.6, Lymphocytes (%) (Auto) 15.5, Monocytes (%) (Auto) 5.5, Eosinophils (%) (Auto) 1.9, Basophils (%) (Auto) 0.3, Neutrophils # (Auto) 9.69, Lymphocytes # (Auto) 1.96, Monocytes # (Auto) 0.70, Eosinophils # (Auto) 0.24, Basophils # (Auto) 0.04 03/19/18 03:03 Test 03/19/18 03:03 03/19/18 04:01 03/19/18 04:20 03/19/18 04:26 White Blood Count 12.66 K/uL (4.8-10.8) Red Blood Count 4.91 M/uL (4.2-5.4) Hemoglobin 14.8 g/dL (12.0-16.0) Hematocrit 43.2 % (37-47) Mean Corpuscular Volume 88.0 fL (80-100) Mean Corpuscular Hemoglobin 30.1 pg (25-34) Mean Corpuscular Hemoglobin Concent 34.3 g/dl (32-36) Platelet Count 286 K/uL (130-400) Mean Platelet Volume 9.8 fL (7.4-10.4) Neutrophils (%) (Auto) 76.6 % Lymphocytes (%) (Auto) 15.5 % Monocytes (%) (Auto) 5.5 % Eosinophils (%) (Auto) 1.9 % Basophils (%) (Auto) 0.3 % Neutrophils # (Auto) 9.69 K/uL (1.4-6.5) Lymphocytes # (Auto) 1.96 K/uL (1.2-3.4) Monocytes # (Auto) 0.70 K/uL (0.11-0.59) Eosinophils # (Auto) 0.24 K/uL (0-0.5) Basophils # (Auto) 0.04 K/uL (0-0.2) RDW Standard Deviation 45.1 fL (36.4-46.3) RDW Coefficient of Variation 14.0 % (11.5-14.5) Immature Granulocyte % (Auto) 0.2 % Immature Granulocyte # (Auto) 0.03 K/uL (0.00-0.02) Anion Gap 9.0 mmol/L (3-11) Est Creatinine Clear Calc Drug Dose 50.4 ml/min Estimated GFR () 58.2 Estimated GFR (Non- 50.3 BUN/Creatinine Ratio 16.1 (10-20) Estimated Average Glucose 220 mg/dl Hemoglobin A1c 9.3 % (4.5-5.6) Calcium Level 8.9 mg/dl (8.5-10.1) Magnesium Level 1.6 mg/dl (1.8-2.4) Total Bilirubin 0.6 mg/dl (0.2-1) Aspartate Amino Transf (AST/SGOT) 20 U/L (15-37) Alanine Aminotransferase (ALT/SGPT) 22 U/L (12-78) Alkaline Phosphatase 65 U/L (45-117) Total Creatine Kinase 163 U/L (26-192) Creatine Kinase MB 1.3 ng/ml (0.5-3.6) Creatine Kinase MB Ratio 0.8 (0-3.0) Total Protein 7.4 gm/dl (6.4-8.2) Albumin 3.2 gm/dl (3.4-5.0) Globulin 4.2 gm/dl (2.5-4.0) Albumin/Globulin Ratio 0.8 (0.9-2) Lipase 191 U/L (73-393) Beta-Hydroxybutyric Acid mg/dL (0.2-2.81) Thyroid Stimulating Hormone (TSH) 2.720 uIu/ml (0.300-4.500) Bedside D-Dimer > 450 ng/mlFEU (0-450) Bedside Troponin I < 0.030 ng/ml (0-0.045) Urine Color YELLOW Urine Appearance CLOUDY (CLEAR) Urine pH 5.0 (4.5-7.5) Urine Specific [place] 1.021 (1.000-1.030) Urine Protein TRACE (NEG) Urine Glucose (UA) 3+ (NEG) Urine Ketones NEG (NEG) Urine Occult Blood 2+ (NEG) Urine Nitrite NEG (NEG) Urine Bilirubin NEG (NEG) Urine Urobilinogen NEG (NEG) Urine Leukocyte Esterase TRACE (NEG) Urine WBC (Auto) 5-10 /hpf (0-5) Urine RBC (Auto) 10-30 /hpf (0-4) Urine Hyaline Casts (Auto) 0 /lpf (0-5) Urine Epithelial Cells (Auto) 20-30 /lpf (0-5) Urine Bacteria (Auto) NEG (NEG) Prothrombin Time 12.0 SECONDS (9.0-12.0) Prothromb Time International Ratio 1.1 (0.9-1.1) Activated Partial Thromboplast Time 24.3 SECONDS (21.0-31.0) Partial Thromboplastin Ratio 0.9 Medications Administered Medications (Trade) Dose Ordered Sig/Jay Route Start Time Stop Time Status Last Admin Dose Admin Nitroglycerin (Nitroglycerin 2% Oint) 1 inch NOW ONCE EXT 03/19/18 04:00 03/19/18 07:08 DC 03/19/18 04:03 1 INCH Morphine Sulfate (MoRPHine SULFATE INJ) 4 mg NOW ONCE IV 03/19/18 04:00 03/19/18 04:01 DC 03/19/18 04:03 4 MG Sodium Chloride 500 ml @ 999 mls/hr Q31M STAT IV 03/19/18 03:49 03/19/18 04:19 DC 03/19/18 04:04 999 MLS/HR ECG Per My Interpretation Change: Sinus tachycardia @107 bpm Low voltage QRS Inferior infarct , age undetermined Cannot rule out Anterior infarct , age undetermined Abnormal ECG No previous ECGs available ED Course Physical exam and history were performed. Nursing notes, EMR, and Medication List were personally reviewed. Patient appears to have chest pain radiating into her right side jaw that improved with aspirin and nitroglycerin prehospital. The patient is diabetic and has some persistent tachycardia here in the department. EKG shows sinus tach with no distinct ST elevation as above. IV access was established and labs are obtained. The patient was given Nitropaste and hydrated with 500 mL normal saline. She had 500 mL's prehospital. Chest x-ray was performed. She was placed on a monitoring coordinator. The patient's blood work is as above and was reviewed. She does not have a significantly elevated white blood cell count or gross anemia. Her sugar is elevated at greater than 300. Lipase and transaminases are not diagnostic. Troponin is negative. D-dimer was elevated and a CT scan of the chest did not show evidence of PE. Chest x-ray was reviewed by myself and radiology showing no acute process. The patient remained in normal sinus rhythm on the monitoring coordinator. On reevaluation the patient had persistently improving symptoms. Her discomfort certainly did not worsen and she did not have return of the worsening chest pain. I do have considerable concern for the patient as she is having relief with nitroglycerin and she is a diabetic. I discussed the case with the on-call [facility] hospitalist, who agreed to evaluate the patient here in the department. Please see their dictation for further patient course, plan , and disposition. The chart was completed utilizing [employer] Voice Recognition Software. Grammatical errors, random word insertions, pronoun errors, and incomplete sentences are an occasional consequence of this system due to software limitations, ambient noise, and hardware issues. Any formal questions or concerns about the content, text, or information contained within the body of this dictation should be directly addressed to the provider for clarification. . Medical Decision Differential diagnosis includes, but is not limited to: Myocardial infarction, dysrhythmia, pericarditis, pneumothorax, aortic aneurysm/dissection, DVT/PE, anxiety, GERD, PUD, electrolyte imbalance, thyroid disorder, pneumonia, bronchitis, pancreatitis, and others Impression Primary Impression: Substernal precordial chest pain Departure Information Dispostion Still a Patient Referrals No Doctor, Assigned (PCP) Forms Call Back Authorization, HOME CARE DOCUMENTATION FORM, IMPORTANT VISIT INFORMATION Patient Instructions [facility]
[2018-03-20 04:36] VITALS: BP 130/74; PULSE 74; TEMP 36.5; O2SAT 92
[2018-03-20] MEDS: LEVOTHYROXINE 125 MCG TAB PO SCH (05:45)
[2018-03-20 05:54] LABS: BASO % 0.2 %; BASO ABS # 0.02 K/uL (0-0.2); EOS % 3.4 %; HEMATOCRIT 40.1 % (37-47); HEMOGLOBIN 13.2 g/dL (12.0-16.0); IG# 0.03 K/uL (0.00-0.02); LYMPH % 30.6 %; LYMPH ABS # 2.72 K/uL (1.2-3.4); MEAN CELL VOLUME 89.5 fL (80-100); MEAN CORPUSCULAR HEMOGLOBIN 29.5 pg (25-34); MEAN CORPUSCULAR HGB CONC 32.9 g/dl (32-36); MEAN PLATELET VOLUME 9.3 fL (7.4-10.4); MONO % 9.6 %; MONO ABS # 0.85 K/uL (0.11-0.59); NEUT % 55.9 %; NEUT ABS # 4.97 K/uL (1.4-6.5); PLATELET COUNT 231 K/uL (130-400); RED CELL DISTRIBUTION WIDTH CV 14.5 % (11.5-14.5); RED CELL DISTRIBUTION WIDTH SD 47.4 fL (36.4-46.3); WHITE BLOOD COUNT 8.89 K/uL (4.8-10.8)
[2018-03-20 06:50] LABS: CALCIUM 8.3 mg/dl (8.5-10.1); CREATININE 0.91 mg/dl (0.60-1.20); POTASSIUM 3.8 mmol/L (3.5-5.1)
[2018-03-20 07:55] VITALS: BP 120/72; PULSE 79; TEMP 36.6; O2SAT 93
[2018-03-20 08:00] VITALS: O2SAT 93
[2018-03-20] MEDS: ENOXAPARIN 40 MG/0.4 ML SYR SC SCH (08:00)
[2018-03-20] MEDS ORDERED: PANTOprazole SOD 40 MG TAB PO SCH (09:00)
[2018-03-20] MEDS ORDERED: METOPROLOL TARTRATE 25 MG TAB PO SCH (09:00)
[2018-03-20] MEDS ORDERED: ASPIRIN 81 MG ECTAB PO SCH (09:00)
[2018-03-20] MEDS ORDERED: INSULIN DETEMIR FLEXPEN/FLEX TOUCH 100 UNITS/ML 3ML SQ SCH (09:00)
[2018-03-20] MEDS: ATORVASTATIN 20 MG TAB PO SCH (09:44)
[2018-03-20] MEDS: DULOXETINE (CYMBALTA) 30 MG CAP PO SCH (09:44)
[2018-03-20] MEDS: IBUPROFEN 200 MG TAB PO SCH ×2 (09:45→14:09)
[2018-03-20] MEDS: INSULIN ASPART 100 UNITS/ML 3 ML PEN SC SCH ×2 (09:54→12:53)
--- NOTE | 2018-03-20 10:08 | Cardiology Follow-Up ---
Subjective General Date of Service: March 20, 2018. Chief Complaint: Chest pain Pt evaluation today including: conversation w/ patient, physical exam, chart review, lab review, review of studies, review of inpatient medication list History of Present Illness Patient seen and examined. Patient notes feeling considerably better. Notes significant improvement in her discomfort, down to a 2 out of 10 as well as getting a good night sleep last night. Breathing easier and deeper. No palpitations. No orthopnea, PND, or edema. March 19, 2018 TTE Interpretation Summary ([facility], Dr. Medina): The left ventricle is normal in size. There is moderate concentric left ventricular hypertrophy. Left ventricular systolic function is normal. Ejection Fraction = 65-70%. The left ventricular wall motion is normal. There is no significant valvular disease There is no pericardial effusion. Telemetry: Sinus in the 70's to 80's currently. Intermittent sinus tachycardiac overnight. No significant atrial or ventricular arrhythmias. Allergies Coded Allergies: Meperidine (Verified Allergy, Unknown, HIVES, 03/19/18) Metformin (Verified Allergy, Unknown, GI UPSET, 03/19/18) Social History Smoking Status: Never Smoker Hx Alcohol Use - Type And Amou: No Hx Substance Use - Type And Am: No Problem List Medical Problems: (1) Substernal precordial chest pain Status: Acute Physical Exam Vital Signs Last Vital Signs Documentation Date Time Temp Pulse Resp B/P (MAP) Pulse Ox O2 Delivery O2 Flow Rate FiO2 03/20/18 07:55 36.6 79 18 120/72 (88) 93 03/20/18 04:36 Room Air Physical Exam Constitutional: Level of Distress: NAD Psychiatric: Mental Status: active & alert Orientation: to time, to place, to person Memory: recent memory normal, remote memory normal Head: normocephalic, atraumatic Eyes: Pupils: PERRLA Neck: pertinent finding (Normal JVP) Lungs: Auscultation: no wheezing, no rales/crackles, no rhonchi, deminished air movement Cardiovascular: Heart Auscultation: RRR, normal S1, normal S2, no murmurs, no rubs Peripheral Pulses: Radial Pulse: normal on the left, normal on the right Dorsalis Pedis Pulse: normal on the left, normal on the right Abdomen: Bowel Sounds: normal Extremities: no cyanosis, no edema, no clubbing Neurologic: Cranial Nerves: grossly intact Assessment and Plan Assessment and Plan Pleuropericarditis Hypertension Dyslipidemia RECOMMENDATIONS/PLAN: EKG this morning. Continue Ibuprofen as presently prescribed then begin, on 03/21/2018, to gradually taper off over the next two weeks Continue Pantoprazole Continue low dose beta-david therapy OK to feed. Increase activity as tolerated. Laboratory Results Last 24 Hours Test 03/19/18 11:01 03/19/18 17:25 03/19/18 17:44 03/19/18 20:12 Erythrocyte Sedimentation Rate 44 mm/hr Lyme Disease IgG Antibody NEG Bedside Glucose 158 mg/dl 215 mg/dl Troponin I < 0.015 ng/ml Test 03/20/18 05:36 03/20/18 07:12 White Blood Count 8.89 K/uL Red Blood Count 4.48 M/uL Hemoglobin 13.2 g/dL Hematocrit 40.1 % Mean Corpuscular Volume 89.5 fL Mean Corpuscular Hemoglobin 29.5 pg Mean Corpuscular Hemoglobin Concent 32.9 g/dl Platelet Count 231 K/uL Mean Platelet Volume 9.3 fL Neutrophils (%) (Auto) 55.9 % Lymphocytes (%) (Auto) 30.6 % Monocytes (%) (Auto) 9.6 % Eosinophils (%) (Auto) 3.4 % Basophils (%) (Auto) 0.2 % Neutrophils # (Auto) 4.97 K/uL Lymphocytes # (Auto) 2.72 K/uL Monocytes # (Auto) 0.85 K/uL Eosinophils # (Auto) 0.30 K/uL Basophils # (Auto) 0.02 K/uL RDW Standard Deviation 47.4 fL RDW Coefficient of Variation 14.5 % Immature Granulocyte % (Auto) 0.3 % Immature Granulocyte # (Auto) 0.03 K/uL Sodium Level 137 mmol/L Potassium Level 3.8 mmol/L Chloride Level 106 mmol/L Carbon Dioxide Level 28 mmol/L Anion Gap 3.0 mmol/L Blood Urea Nitrogen 12 mg/dl Creatinine 0.91 mg/dl Est Creatinine Clear Calc Drug Dose 62.6 ml/min Estimated GFR () 75.7 Estimated GFR (Non- 65.3 BUN/Creatinine Ratio 13.2 Random Glucose 187 mg/dl Calcium Level 8.3 mg/dl Magnesium Level 2.0 mg/dl Bedside Glucose 208 mg/dl
--- NOTE | 2018-03-20 10:28 | Progress Note ---
Internal Med Progress Note Date of Service: March 19, 2018. Provider Documentation: SUBJECTIVE: The patient was seen and examined in telemetry unit. She was admitted with chest pain radiation to right neck and jaw Initial EKG cardiac enzymes and echocardiogram unremarkable Still having some pain in the chest. Seems to be costochondral junctional pain We will do more cardiac enzymes to rule out possibilities of ACS Chest pain is down to 2-3 range No EKG ,Troponin or ECHO abnormalities Ambulating well Will discharge this afternoon OBJECTIVE: Vital Signs-as noted below Exam: General-complains some pain in the mid chest Eyes-normal ENT-normal Neck-supple Lungs-clear to auscultate bilaterally Heart-S1-S2, regular, no murmur and no rub Abdomen-benign,nontender, no organomegaly, bowel sounds present Extremities-negative for any edema Neuro-alert, awake and oriented 3 No focal sensory or motor deficit appreciated Lab data as noted below. ASSESSMENT & PLAN: Atypical chest pain/Pleuropericarditis Likely secondary to costochondritis, could be due to unstable angina unstable angina and/or pericarditis Esophageal reflux disease And reapproximated too Initial cardiac enzymes and EKGs are unremarkable Echo of the heart unremarkable too Continue home ASA for CAD prevention until ACS ruled out. Appreciate cardiology input Patient is still having chest pain We will continue with symptomatic medications and check more cardiac enzymes and electrocardiograms We will keep the patient n.p.o. after midnight for possible cardiac testing in the morning Pain is much improved Continue NSAIDs and PPI Hyperlipidemia on statin tx History of gastric bypass May have Reflux disease Will start PPI and continue for now DM2, on insulin suboptimal control. Basal insulin, ISS BG goal 140 to 180. Diabetic education. Blood sugar is controlled Hypothyroidism Continue Supplement DVT Prophylaxis : Lovenox subQ Full code. Home this afternoon Vital Signs: Date Time Temp Pulse Resp B/P (MAP) Pulse Ox O2 Delivery O2 Flow Rate FiO2 03/20/18 07:55 36.6 79 18 120/72 (88) 93 03/20/18 04:36 36.5 74 20 130/74 (92) 92 Room Air 03/20/18 04:05 Room Air 03/20/18 00:05 Room Air 03/19/18 22:41 36.8 82 20 103/68 (80) 92 Room Air 03/19/18 20:05 93 Room Air 03/19/18 19:35 37.1 97 20 137/78 (97) 93 Room Air 03/19/18 19:20 94 152/76 (101) 03/19/18 16:13 94 139/78 (98) 03/19/18 16:00 93 Room Air 03/19/18 14:00 36.9 106 20 109/55 94 Room Air 03/19/18 11:56 37.4 99 20 123/79 (94) Room Air Lab Results: Results Past 24 Hours Test 03/19/18 11:01 03/19/18 17:25 03/19/18 17:44 03/19/18 20:12 Range/Units Erythrocyte Sedimentation Rate 44 0-21 mm/hr Lyme Disease IgG Antibody NEG NEG Bedside Glucose 158 215 70-90 mg/dl Troponin I < 0.015 0-0.045 ng/ml Test 03/20/18 05:36 03/20/18 07:12 Range/Units White Blood Count 8.89 4.8-10.8 K/uL Red Blood Count 4.48 4.2-5.4 M/uL Hemoglobin 13.2 12.0-16.0 g/dL Hematocrit 40.1 37-47 % Mean Corpuscular Volume 89.5 80-100 fL Mean Corpuscular Hemoglobin 29.5 25-34 pg Mean Corpuscular Hemoglobin Concent 32.9 32-36 g/dl Platelet Count 231 130-400 K/uL Mean Platelet Volume 9.3 7.4-10.4 fL Neutrophils (%) (Auto) 55.9 % Lymphocytes (%) (Auto) 30.6 % Monocytes (%) (Auto) 9.6 % Eosinophils (%) (Auto) 3.4 % Basophils (%) (Auto) 0.2 % Neutrophils # (Auto) 4.97 1.4-6.5 K/uL Lymphocytes # (Auto) 2.72 1.2-3.4 K/uL Monocytes # (Auto) 0.85 0.11-0.59 K/uL Eosinophils # (Auto) 0.30 0-0.5 K/uL Basophils # (Auto) 0.02 0-0.2 K/uL RDW Standard Deviation 47.4 36.4-46.3 fL RDW Coefficient of Variation 14.5 11.5-14.5 % Immature Granulocyte % (Auto) 0.3 % Immature Granulocyte # (Auto) 0.03 0.00-0.02 K/uL Sodium Level 137 136-145 mmol/L Potassium Level 3.8 3.5-5.1 mmol/L Chloride Level 106 98-107 mmol/L Carbon Dioxide Level 28 21-32 mmol/L Anion Gap 3.0 3-11 mmol/L Blood Urea Nitrogen 12 7-18 mg/dl Creatinine 0.91 0.60-1.20 mg/dl Est Creatinine Clear Calc Drug Dose 62.6 ml/min Estimated GFR () 75.7 Estimated GFR (Non- 65.3 BUN/Creatinine Ratio 13.2 10-20 Random Glucose 187 70-99 mg/dl Calcium Level 8.3 8.5-10.1 mg/dl Magnesium Level 2.0 1.8-2.4 mg/dl Bedside Glucose 208 70-90 mg/dl
[2018-03-20 11:37] VITALS: BP 129/77; PULSE 84; TEMP 36.8; O2SAT 94
[2018-03-20 12:00] VITALS: O2SAT 94
[2018-03-20] MEDS ORDERED: LPR25 PO (12:48)
[2018-03-20] MEDS ORDERED: ASPI-320 PO (12:48)
[2018-03-20] MEDS ORDERED: PRT40 PO (12:48)
--- NOTE | 2018-03-20 12:51 | Discharge Instructions ---
Discharge Instructions Date of Service March 20, 2018. Admission Reason for Admission: Other Chest Pain Discharge Discharge Diagnosis / Problem: Chect painlikely secondary to pleuropericarditis Discharge Goals Goal(s): Prevent Disease Progression Activity Recommendations Activity Limitations: resume your previous activity . Instructions / Follow-Up Instructions / Follow-Up Please make an appointment with your PCP in 1 week.You will need a follow up appointment with your Marketing Developer in 1-2 weeks,Continue Ibuprofen for the next 1-2 weeks and taper off. Current Hospital Diet Patient's current hospital diet: Diabetes Type 2 Diet, AHA Diet (Heart Healthy) Discharge Diet Recommended Diet: AHA Diet (Heart Healthy), Diabetes Type 2 Diet Pending Studies Studies pending at discharge: no Laboratory Results Hemoglobin A1c Test 03/19/18 03:03 Range/Units Estimated Average Glucose 220 mg/dl Hemoglobin A1c 9.3 H 4.5-5.6 % Lipid Panel Test 03/19/18 07:14 Range/Units Triglycerides Level 86 0-150 mg/dl Cholesterol Level 137 0-200 mg/dl HDL Cholesterol 41 mg/dl Cholesterol/HDL Ratio 3.3 LDL Cholesterol, Calculated 79 mg/dl Medical Emergencies . Who to Call and When: Medical Emergencies: If at any time you feel your situation is an emergency, please call 911 immediately. . Non-Emergent Contact Non-Emergency issues call your: Primary Care Provider . Past History Medical & Surgical History: (1) Pleuropericarditis (2) Other chest pain (3) Substernal precordial chest pain . "Provider Documentation" section prepared by Cyndi Knight. .
[2018-03-20 13:31] VITALS: BP 129/77; PULSE 84; TEMP 36.8; O2SAT 94
--- NOTE | 2018-03-20 16:15 | Discharge Summary ---
Discharge Summary Date of Service March 20, 2018. Discharge Summary Admission Date: March 19, 2018 at 06:45 Discharge Date: March 20, 2018 Discharge Disposition: Home Principal Diagnosis: Chest pain-likely secondary to pleuropericarditis Secondary Diagnoses/Problems: Please see H&P and Hospital Progress note Consultations: Cardiology Medication Reconciliation New Medications: Aspirin (Aspirin EC Low Dose) 81 Mg Ectab 81 MG PO QAM for 30 Days, #30 Metoprolol Tartrate (Lopressor) 25 Mg Tab 12.5 MG PO BID17 for 30 Days, #30 TAB Pantoprazole (Pantoprazole Sodium) 40 Mg Tab 40 MG PO QAM for 30 Days, #30 TAB Continued Medications: Atorvastatin (Lipitor) 20 Mg Tab 20 MG PO DAILY, TAB Cholecalciferol (Vitamin D3) 2,000 Unit Cap 2000 UNITS PO DAILY for 90 Days, CAP 3 Refills Duloxetine HCl (Cymbalta) 30 Mg Cap 30 MG PO DAILY for 30 Days, #30 CAP 2 Refills Exenatide (Bydureon) Unknown Strength Inj Unknown Dose SC WK Insulin Detemir (Levemir Flextouch) 100 Unit/Ml Inj 60 SQ DAILY Levothyroxine Sodium (Levothyroxine Sodium) 125 Mcg Tab 125 MCG PO DAILY for 90 Days, #90 TAB 3 Refills Admission Information HPI (per Admitting provider): DATE OF ADMISSION: 03/19/2018 PRIMARY CARE DOCTOR: [facility] in [place], [place]. CHIEF COMPLAINT: Chest pain. HISTORY OF PRESENT ILLNESS: History obtained from patient and records. Medical history is significant for hyperlipidemia, mood disorder, DM2, insulin requiring Patient currently on a camping trip in [place], [place]. She was watching television hours ago when she had substernal pain going to her right neck as if an elephant sitting on her chest with some nausea. She felt sweat, shortness of breath, dry cough symptom. Chest discomfort relieved with nitroglycerin and aspirin given by EMS, MEDICAL HISTORY: As above. She had a stress test a few years ago for unrecalled reasons. SURGICAL HISTORY: She has had hysterectomy, carpal tunnel surgery, thyroidectomy, gastric bypass. MEDICATIONS: Home medications include aspirin, Lipitor, Cymbalta, exenatide, Levemir, levothyroxine. ALLERGIES: MEPERIDINE, METFORMIN. FAMILY HISTORY: Heart disease. PERSONAL AND SOCIAL HISTORY: Nonsmoker, no chronic ETOH intake. Retired museum employee. REVIEW OF SYSTEMS: As per HPI. All 10 systems reviewed, all other ROS negative. PHYSICAL EXAMINATION: VITAL SIGNS: Blood pressure was noted to be 126/70, pulse rate 100, RR 19, temperature 36.7, saturations 95% on room air. GENERAL: Slightly anxious, obese, pleasant. SKIN: Normal color, warm. HEENT: [place] palpebral conjunctivae. No ptosis . Dry oral mucosa. NECK: Short, supple. CHEST: Clear to auscultation. No tenderness. HEART: Regular rate and rhythm. No murmur. ABDOMEN: Some distention, nontender. EXTREMITIES: No edema. No gross deformities. No tenderness. NEUROLOGIC: Coherent, no gross focality. LABORATORY DATA: Hemoglobin was noted to be 14.8, hematocrit 42.2, white cells 12.66, platelets 286. Sodium noted to be 136, potassium 3.8, chloride 104, CO2 of 20, BUN 80, creatinine 1.2, glucose 335. Point of care troponin noted to be 0.03. Hemoglobin A1C 9.3. CT of chest initial read showed atelectasis, small hiatal hernia, calcified nodules. EKG as per my interpretation, rate 105, sinus tachycardia, low voltage, PRWP. ASSESSMENT: 1. Chest pain possible unstable angina 2. hyperlipidemia on statin tx 3. history of gastric bypass 4. DM2, on insulin suboptimal control. PLAN: Observation PCU Follow troponin. Cardiology consult RE chest pain Continue home ASA for CAD prevention until ACS ruled out. Basal insulin, ISS BG goal 140 to 180. Diabetic education. DVT Prophylaxis : Lovenox subQ Full code. Hospital Course Atypical chest pain/Pleuropericarditis Likely secondary to costochondritis, could be due to unstable angina unstable angina and/or pericarditis Esophageal reflux disease And reapproximated too Initial cardiac enzymes and EKGs are unremarkable Echo of the heart unremarkable too Continue home ASA for CAD prevention until ACS ruled out. Appreciate cardiology input Patient is still having chest pain We will continue with symptomatic medications and check more cardiac enzymes and electrocardiograms We will keep the patient n.p.o. after midnight for possible cardiac testing in the morning Pain is much improved Continue NSAIDs and PPI Hyperlipidemia on statin tx History of gastric bypass May have Reflux disease Will start PPI and continue for now DM2, on insulin suboptimal control. Basal insulin, ISS BG goal 140 to 180. Diabetic education. Blood sugar is controlled Hypothyroidism Continue Supplement DVT Prophylaxis : Lovenox subQ Full code. Home this afternoon Total time spent on discharge =35 minutes This includes examination of the patient, discharge planning, medication reconciliation, and communication with other providers. Discharge Instructions Date of Service March 20, 2018. Admission Reason for Admission: Other Chest Pain Discharge Discharge Diagnosis / Problem: Chect painlikely secondary to pleuropericarditis Discharge Goals Goal(s): Prevent Disease Progression Activity Recommendations Activity Limitations: resume your previous activity . Instructions / Follow-Up Instructions / Follow-Up Please make an appointment with your PCP in 1 week.You will need a follow up appointment with your Drill Instructor in 1-2 weeks,Continue Ibuprofen for the next 1-2 weeks and taper off. Current Hospital Diet Patient's current hospital diet: Diabetes Type 2 Diet, AHA Diet (Heart Healthy) Discharge Diet Recommended Diet: AHA Diet (Heart Healthy), Diabetes Type 2 Diet Pending Studies Studies pending at discharge: no Laboratory Results Hemoglobin A1c Test 03/19/18 03:03 Range/Units Estimated Average Glucose 220 mg/dl Hemoglobin A1c 9.3 H 4.5-5.6 % Lipid Panel Test 03/19/18 07:14 Range/Units Triglycerides Level 86 0-150 mg/dl Cholesterol Level 137 0-200 mg/dl HDL Cholesterol 41 mg/dl Cholesterol/HDL Ratio 3.3 LDL Cholesterol, Calculated 79 mg/dl Medical Emergencies . Who to Call and When: Medical Emergencies: If at any time you feel your situation is an emergency, please call 911 immediately. . Non-Emergent Contact Non-Emergency issues call your: Primary Care Provider . Past History Medical & Surgical History: (1) Pleuropericarditis (2) Other chest pain (3) Substernal precordial chest pain . "Provider Documentation" section prepared by Cyndi Knight. . <Electronically signed by Cyndi Knight M.D.>
== END 2018-03-20 14:25 | disposition home or self-care (01) ==
LOC: EDBD 03:36 → C.EDA 03:40 → C.MED 06:45 → ENRESERV 06:58
PROVIDERS: ADMIT Internal Medicine; ATTEND Internal Medicine
DX: R07.2 Precordial pain (principal); E11.9 Type 2 diabetes mellitus without complications; E78.5 Hyperlipidemia, unspecified; Z98.84 Bariatric surgery status; I10 Essential (primary) hypertension; E66.9 Obesity, unspecified; Z98.1 Arthrodesis status; Z82.49 Family history of ischemic heart disease and other diseases of the circulatory system; Z88.8 Allergy status to other drugs, medicaments and biological substances; Z79.899 Other long term (current) drug therapy; Z79.82 Long term (current) use of aspirin; Z79.4 Long term (current) use of insulin; Z90.710 Acquired absence of both cervix and uterus; K21.9 Gastro-esophageal reflux disease without esophagitis; E03.9 Hypothyroidism, unspecified